=== PATIENT | female | born 1985 | race African-American/Black ===

== ENCOUNTER 2025-03-07 13:02 | Emergency (ER) | payer MEDICAID, SELFPAY ==
--- NOTE | ~2025-03-07 | XR_ITS ---
CLINICAL HISTORY: cough, sob 2 view chest x-ray Comparison: None provided Findings: The lungs are clear. Normal size heart. No acute fracture. IMPRESSION: 1. No acute findings. This document has been electronically signed by: Yung Rivera MD on 03/07/2025 18:57:50
[2025-03-07 13:14] VITALS: BP 123/64; PULSE 83; RESP 20; TEMP 36.8; O2SAT 99; BMI 43.1
--- NOTE | 2025-03-07 13:15 | ED_ITS ---
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 Denies any known sick contacts. She presented to work today and they advised her to come to the ED for a work note. She denies headache, vision changes, sore throat, dizziness, chest pain, shortness of breath, lower extremity pain/swelling, nausea/vomiting/diarrhea, abdominal pain, urinary symptoms. Related Data Previous Rx's ?Medication ?Instructions ?Recorded benzonatate 100 mg capsule 100 mg PO BID PRN cough #20 caps 03/07/25 Allergies Allergy/AdvReac Type Severity Reaction Status Date / Time No Known Allergies Allergy Verified 03/07/25 13:18 Review of Systems 2 Review of Systems: Yes all other systems are reviewed and are negative PMFSH Past Medical History Attestation statement: The following information was validated with the patient. Source: old records reviewed and nursing notes reviewed Physical Exam ED Vital Signs: Vital Signs - 24 hr 03/07/25 13:14 03/07/25 15:07 03/07/25 16:23 Temperature 98.3 F 97.8 F Pulse Rate 83 80 74 Respiratory Rate 20 16 16 Blood Pressure 123/64 132/76 90/64 Pulse Oximetry 99 97 97 Oxygen Delivery Method Room Air Room Air Room Air 03/07/25 18:16 03/07/25 19:57 Temperature 98.4 F Pulse Rate 74 74 Respiratory Rate 16 16 Blood Pressure 98/62 98/62 Pulse Oximetry 96 96 Oxygen Delivery Method Room Air Room Air BMI result Body Mass Index 43.1 vital signs stable General: Well appearing, in no acute distress. Skin: Warm, dry, intact. No rashes or lesions. Head: Normocephalic, atraumatic. EENT: Hearing is intact b/l. Conjunctiva clear. PERRLA. EOM intact. Moist mucous membranes.? Neck: Supple without LAD Cardiac: Chest wall symmetric. RRR Lungs: Normal respiratory effort without accessory muscle use. CTA bilaterally. No rales, rhonchi, or wheezes.? Abdomen: Soft, non-tender, non-distended. No rebound tenderness or guarding. Positive BS x4. No CVAT bilaterally Back: No midline spinous or paraspinal tenderness. No step off deformity. Ext: no pitting edema, no calf tenderness b/l Neuro: AOx3. Normal speech. Ambulating with steady gait Course Course Course Narrative: RME, this is a rapid medical exam performed by Edouard Morales please refer to primary provider for complete H&P- 39-year-old primarily [place] Creole speaking female presents for evaluation of cough and body aches. Plan for viral swabs and strep testing. Reevaluation(s) Reevaluation #1: 1534 -- viral/strep testing negative. will add on CXR and UA. 1944 -- CXR unremarkable. blood work reassuring. UA without infection. patient likely has a viral infection. discussed all work up results with patient. educated on supportive management. work note provided. Patient has remained stable throughout ED visit today. Discussed worrisome signs and symptoms and when to return to the ED. All questions answered at this time. Patient is agreeable with disposition and stable for discharge. Medical Decision Making Medical Decision Making [facility] Narrative: 39 year old female presents to the ED today for evaluation of subjective fever, chills, myalgias and dry cough x3 days. Vital signs stable, she is well- appearing and in no acute distress. Exam benign. Differential diagnosis includes viral syndrome, bronchitis, pneumonia, UTI, anemia, electrolyte abnormality. Unlikely PE, ACS, arrhythmia, pleural effusion, myocarditis, pericarditis. Plan for labs, viral swabs, UA, chest x-ray, re-evaluation. Differential Diagnosis Differential Diagnoses: The differential diagnosis associated with the presentation includes As above Admission/Observation Not indicated Lab Data [facility] Lab Attestation statement: I reviewed the patient's lab results. As above 03/07/25 17:36 03/07/25 17:36 Labs: Lab Results 03/07/25 03/07/25 03/07/25 Range/Units 13:37 17:25 17:36 WBC 8.5 (4.8-10.8) X10*3/uL RBC 4.12 L (4.20-5.50) X10*6/uL Hgb 12.3 (12.0-16.0) g/dl Hct 37.4 (37.0-47.0) % MCV 90.8 (80.0-98.0) fL MCH 29.9 (27.0-33.0) pg MCHC 32.9 (31.0-35.0) g/dl RDW 13.4 (11.0-16.0) % Plt Count 167 (160-400) X10*3/uL MPV 11.5 (9.4-12.3) fL Immature Gran % (Auto) 0.1 (0.0-0.4) % Neut % (Auto) 47.2 (45-73) % Lymph % (Auto) 42.5 H (20-40) % [place] % (Auto) 8.2 (2-11) % Eos % (Auto) 1.5 (0-4) % Baso % (Auto) 0.5 (0-2) % Lymph # (Auto) 3.6 (1.2-4.9) X10*3/uL [place] # (Auto) 0.7 (0.1-1.2) X10*3/uL Eos # (Auto) 0.1 (0.0-0.4) X10*3/uL Baso # (Auto) 0.0 (0.0-0.2) X10*3/uL Abs Immat Gran (auto) 0.01 (0.00-0.03) X10*3/uL Absolute Neuts (auto) 4.0 (2.0-8.3) x10*3/uL Absolute Nucleated RBC 0.000 (0.0-0.012) X10*3/uL Nucleated RBC % (auto) 0.0 (0.0-0.2) /100WBC Sodium 137 (135-145) mmol/L Potassium 3.8 (3.3-5.1) mmol/L Chloride 105 (96-108) mmol/L Carbon Dioxide 24 (22-29) mmol/L Anion Gap 12 (12-20) BUN 13 (9-16) mg/dL Creatinine 0.80 (0.5-1.4) mg/dL Estim Creat Clear Calc 135.3 Estimated GFR > 60 Random Glucose 88 (60-115) mg/dL Calcium 9.1 (8.4-10.2) mg/dL Magnesium 1.9 (1.6-2.6) mg/dL Total Bilirubin 0.6 (0.0-1.0) mg/dL AST 19 (5-31) U/L ALT 12 (0-31) U/L Alkaline Phosphatase 68 (39-117) U/L Total Protein 7.6 (6.5-8.0) g/dL Albumin 4.1 (3.5-5.0) g/dL Lipase 18 (8-78) U/L Beta HCG, Quant < 2 mIU/mL Urine Color Yellow Urine Appearance Clear Urine pH 6.0 (5.0-9.0) Ur Specific [place] 1.025 (1.005-1.025) Urine Protein Negative (Neg-Trace) mg/dL Urine Glucose (UA) Negative (Negative) mg/dL Urine Ketones Negative (Negative) mg/dL Urine Blood Negative (Negative) Urine Nitrite Negative (Negative) Ur Leukocyte Esterase Negative (Negative) Influenza Type A (PCR) NEGATIVE (Negative) Influenza Type B (PCR) NEGATIVE (Negative) RSV RNA Qual (PCR) NEGATIVE (Negative) SARS-CoV-2 RNA (RT-PCR) NEGATIVE (Negative) S. pyogenes GrpA EDUARDO Negative (Negative) Independent Interpretation I performed an independent interpretation of an: Plain X-Ray Interpretation: Chest x-ray without infiltrate or consolidation Radiology Impression Discussion of test interpretation with radiology: I have reviewed the radiologist's reading. Radiologist Impression: rocedure(s): XR chest 2V Accession Number(s): [id number] cc: Physician,None ; Carla Ramirez~ Reason for Exam: cough, sob CLINICAL HISTORY: cough, sob 2 view chest x-ray Comparison: None provided Findings: The lungs are clear. Normal size heart. No acute fracture. IMPRESSION: 1. No acute findings. This document has been electronically signed by: Yung Rivera MD on 03/07/2025 18:57:50 Independent Historian Clinical information obtained from an independent historian. History obtained from or confirmed by: Spouse Prescription Management I considered prescription management with: Other (Tylenol, Motrin, Tessalon Perles) Social Determinants Patient?s care significantly limited by Social Determinants of Health including: Other Social Determinant of Health Critical Care Time Critical Care Time Critical Care Time: No Discharge Plan Discharge Clinical Impression: Viral infection Patient Disposition: Home, Self-Care Instructions: Viral Syndrome (ED) Additional Instructions: You tested negative for COVID, flu, RSV. Your chest x-ray does not show pneumonia. Your blood work is reassuring. Your urine does not demonstrate infection. I believe you have a viral upper respiratory infection. This does not warrant treatment with any antibiotics. The treatment for this is supportive. You may take Tylenol and Motrin at home as needed for fevers or body aches. David Serrano have been sent to your pharmacy for you to take for your cough. Follow up with your primary care provider. Return with any new or worsening symptoms. In the case of an emergency call 911. Prescriptions: New benzonatate 100 mg capsule 100 mg PO BID PRN (Reason: cough) Qty: 20 0RF Referrals: Physician,None [Primary Care Provider, Medical] Stand Alone Forms: Work/School Release Interventions: ED Discharge Assessment Last Done: 03/07/25 19:57 Discharge Date/Time: 03/07/25 20:07 Print Language: Shine Smith
[2025-03-07 13:54] LABS: Strep A Nucleic Acid Negative (Negative)
[2025-03-07 14:20] LABS: Resp Syncy Virus RNA Qual PCR NEGATIVE (Negative); SARS COV2 PCR INHOUSE NEGATIVE (Negative)
[2025-03-07 15:07] VITALS: BP 132/76; PULSE 80; RESP 16; TEMP 36.6; O2SAT 97
[2025-03-07 16:23] VITALS: BP 90/64; PULSE 74; RESP 16; O2SAT 97
[2025-03-07 17:31] LABS: Appearance Urine Clear; Glucose Urine UA Negative (Negative); PH 6.0 (5.0-9.0); Specific Gravity - Urine 1.025 (1.005-1.025)
[2025-03-07 17:41] LABS: MANUAL DIFF FLAG NO
[2025-03-07 17:45] LABS: Hematocrit 37.4 % (37.0-47.0); Hemoglobin 12.3 g/dl (12.0-16.0); Imm Gran Abs Auto 0.01 X10*3/uL (0.00-0.03); Imm Gran Pct Auto 0.1 % (0.0-0.4); Lymphocytes Absolute Auto 3.6 X10*3/uL (1.2-4.9); Mean Corpuscular HGB Conc 32.9 g/dl (31.0-35.0); Mean Corpuscular Hemoglobin 29.9 pg (27.0-33.0); Mean Corpuscular Volume 90.8 fL (80.0-98.0); NRBC Abs Auto 0.000 X10*3/uL (0.0-0.012); NRBC Pct Auto 0.0 /100WBC (0.0-0.2); Platelet Count 167 X10*3/uL (160-400); Red Blood Count 4.12 X10*6/uL (4.20-5.50); White Blood Count 8.5 X10*3/uL (4.8-10.8)
[2025-03-07 18:01] LABS: Alanine Aminotransferase 12 U/L (0-31); Albumin Level 4.1 g/dL (3.5-5.0); Alkaline Phosphatase 68 U/L (39-117); Anion Gap 12 (12-20); Aspartate Amino Transferase 19 U/L (5-31); Blood Urea Nitrogen 13 mg/dL (9-16); Calcium 9.1 mg/dL (8.4-10.2); Carbon Dioxide 24 mmol/L (22-29); Chloride 105 mmol/L (96-108); Creatinine Clr Calc Pharmacy 135.3; Estimated Glomerular Filt Rate > 60; Lipase 18 U/L (8-78); Magnesium 1.9 mg/dL (1.6-2.6); Potassium 3.8 mmol/L (3.3-5.1); Sodium 137 mmol/L (135-145); Total Protein 7.6 g/dL (6.5-8.0)
[2025-03-07 18:16] VITALS: BP 98/62; PULSE 74; RESP 16; O2SAT 96
--- NOTE | 2025-03-07 19:31 | PC.NURSE ---
assumed care of pt, provider at bedside with translation services. respirations even and unlabored.
[2025-03-07 19:57] VITALS: BP 98/62; PULSE 74; RESP 16; TEMP 36.9; O2SAT 96
== END 2025-03-07 20:07 | disposition home or self-care (01) ==
PROVIDERS: Physician Assistant; Physician Assistant Medical; Emergency Provider Emergency Medicine
DX: B34.9 Viral infection, unspecified (principal); R05.9 Cough, unspecified; Z03.818 Encounter for observation for suspected exposure to other biological agents ruled out; R06.02 Shortness of breath
CPT/HCPCS: 36415; 71046; 80053; 81003; 83690; 83735; 84702; 85025; 87637; 87651; 99283

== ENCOUNTER → 2025-03-07 17:20 | Outpatient (BNV) | payer MEDICAID, SELFPAY | PROVIDERS: Emergency Provider Emergency Medicine; Visit Provider Radiology Diagnostic Radiology | DX: R05.9 Cough, unspecified (principal); R06.02 Shortness of breath | CPT/HCPCS: 71046 ==